=== PATIENT | male | born 1965 | race Caucasian/White ===

== ENCOUNTER 2019-04-20 06:46 | Emergency (ER) | payer OTHER ==
[2019-04-20] MEDS ORDERED: Ciprofloxacin 0.3% Ophth Soln 2.5 ML Bottle ONE (07:15)
--- NOTE | 2019-04-20 07:43 | EDM.PDOC ---
ED HPI GENERAL MEDICAL PROBLEM - General Chief Complaint: Eye Problems Stated Complaint: EYE PAIN Time Seen by Provider: 04/20/19 07:23 Source of Information: Reports: Patient, RN History Limitations: Reports: No Limitations - History of Present Illness INITIAL COMMENTS - FREE TEXT/NARRATIVE: 53 yr male presents with pink eye symptoms and exudate to eye this am. [place] to go [place] today. States no injury to the eye and no foreign object to eye. States this happened in August the last time he was here fishing. States no increase in itchiness to the eye. He does wear corrective lenses, states no change in vision noted. Right Eye Pain Score (Numeric/FACES): 7 - Related Data Allergies Allergy/AdvReac Type Severity Reaction Status Date / Time No Known Allergies Allergy Verified 04/20/19 07:14 Past Medical History - Past Health History Medical/Surgical History: Denies Medical/Surgical History ED ROS GENERAL - Review of Systems Review Of Systems: See Below Constitutional: Denies: Fever, Chills HEENT: Reports: Eye Discharge, Glasses, Rhinitis. Denies: Vision Change Respiratory: Reports: No Symptoms Cardiovascular: Reports: No Symptoms Skin: Reports: No Symptoms Neurological: Reports: No Symptoms ED EXAM GENERAL W FULL EYE - Physical Exam Exam: See Below Exam Limited By: No Limitations General Appearance: Alert, No Apparent Distress Eye Exam: Right Eye: Conjunctival Injection, Bilateral Eye: PERRL Eyelids: Right: Edema (Slight edema to the right eyelids), Left: Normal Appearance Cornea Exam: Bilateral: Normal Appearance Extraocular Movements: Bilateral: Intact Pupils: Normal Accommodation Pupillary Size: Bilateral: 4 mm Pupillary Reaction: Bilateral: Brisk Nose: Normal Inspection, Normal Mucosa Throat/Mouth: Normal Inspection, Normal Voice, No Airway Compromise Head: Atraumatic, Normocephalic Neck: Supple, Non-Tender, Full Range of Motion Respiratory/Chest: No Respiratory Distress Neurological: Alert, Oriented, Normal Cognition Psychiatric: Normal Affect, Normal Mood Skin Exam: Warm, Dry, Normal Color Course - Vital Signs Last Recorded V/S: Last Vital Signs Temp 98.0 F 04/20/19 07:16 Pulse 78 04/20/19 07:16 Resp 18 04/20/19 07:16 BP 163/98 H 04/20/19 07:16 Pulse Ox 98 04/20/19 07:16 Departure - Departure Time of Disposition: 07:35 Disposition: Home, Self-Care 01 Condition: Good Clinical Impression: Conjunctivitis - Discharge Information *PRESCRIPTION DRUG MONITORING PROGRAM REVIEWED*: Not Applicable *COPY OF PRESCRIPTION DRUG MONITORING REPORT IN PATIENT LARISSA: Not Applicable Instructions: Bacterial Conjunctivitis, [id number], Ciprofloxacin eye solution Referrals: PCP,Unknown [Primary Care Provider] - Forms: ED Department Discharge Additional Instructions: Discharge home. Use good hand hygiene. Cipro eye drops: 1-2 drops every 2 hours for 2 days. Then 4 times a day for 5 days. Follow up with your primary physician as needed. Call or return to the ER if you have any questions or concerns. - Assessment/Plan Plan: Conjunctivitis: Will treat with Cipro 1-2 qtt every 2 hour X 2 days, then qid X 5 days. Recommend keeping hands clean and away from eyes, dispose of tissues to prevent cross contamination to other eye. Pt states relief with administration of eye qtt in exam room. Counseled on medication and discharge care. Protect eyes from exposure with use of glasses and sunglasses. RTC or ER if symptoms persist or worsen, should improve in 1-2 days.
== END 2019-04-20 07:38 | disposition home or self-care (01) ==
LOC: LB.ED 06:46
DX: H10.9 Unspecified conjunctivitis (principal)
CPT/HCPCS: 99283; A9270-GY